=== PATIENT | female | born 1965 | race Caucasian/White ===

== ENCOUNTER 2023-07-30 08:40 | Outpatient (CLI) | payer OTHER | END 2023-07-30 08:43 | disposition home or self-care (01) | LOC: SONOGRAMA 08:40 | PROVIDERS: ATTEND Pathology Anatomic Pathology & Clinical Pathology | DX: D44.0 Neoplasm of uncertain behavior of thyroid gland (principal); D34 Benign neoplasm of thyroid gland; E07.9 Disorder of thyroid, unspecified; E04.9 Nontoxic goiter, unspecified ==

== ENCOUNTER 2023-09-24 12:44 | Outpatient (CLI) | payer OTHER | END 2023-09-24 12:47 | disposition home or self-care (01) | LOC: SONOGRAMA 12:44 | PROVIDERS: ATTEND Pathology Anatomic Pathology & Clinical Pathology | DX: E04.2 Nontoxic multinodular goiter (principal); D44.0 Neoplasm of uncertain behavior of thyroid gland ==